=== PATIENT | male | born 1960 | race Caucasian/White ===

== ENCOUNTER 2024-01-01 12:54 | Emergency (ER) | payer OTHER ==
--- OUTSIDE RECORDS SUMMARY | 2024-01-01 12:59 | XMS REPORT | Continuity of Care Document ---
Author Name Unknown Address [address] th[address] Address 1200 [facility] [address] [place] [address] Care Team Providers Care News Internship Name Role Phone ROUSE_F Attending Clinician Unavailable ERICKSON_R Attending Clinician Unavailable ROUSE_F Admitting Clinician Unavailable ERICKSON_R Admitting Clinician Unavailable Payers Payer Name Policy Type Policy Number Effective Date Expirati on Date Source [facility] - DUAL ELIGIBLE (MEDICARE REPLACEMENT/[place] [employer] - HMO) [id number] 2022 00:00:00 [facility] [id number] Problems Condition Name Condition Details Condition Category Status Onset Date Resolution Date Last Treatment Date Treating Clinician Comments Source Smoker Sm[facility]term drug therapy Long-term Drug Therapy Problem Active [facility]22[facility] Polyp of colon Polyp of Colon Problem [facility] Hypothyroi dism Hypothyroi dism Problem Active 12[facility]25 [facility] Coronary arterioscl erosis Coronary Arterioscl erosis Problem Active 12-18 00[facility]: [facility] Chronic bronchitis Chronic Bronchitis Problem Active 2021-08 [facility] Pulmonary emphysema Pulmonary Emphysema Problem Active 2021[facility]08 [facility] Hyperchole sterolemia Hyperchole sterolemia Problem Active 2021-08 [facility] Mixed anxiety and depressive disorder Mixed Anxiety and Depressive Disorder Problem Active 2021-08 00:00: 00 [facility] Hypertensi ve disorder Hypertensi ve Disorder Problem Active 2021-08 00:00: 00 [facility] Gastroesop hageal reflux disease Gastroesop hageal Reflux Disease Problem Active 2021-08 00:00: 00 [facility] Chronic back pain Chronic Back Pain Problem Active 2021-08 00:00: 00 [facility] Moderate smoker (20 or less per day) Moderate Smoker (20 or Less per Day) Problem Active 2021-08 00:00: 00 [facility] Malignant neoplasm of skin Malignant Neoplasm of Skin Problem Active 2021-08 00:00: 00 [facility] Type 2 diabetes mellitus Type 2 Diabetes Mellitus Problem Active 2021-08 00:00: 00 [facility] Social History Smoking Status Start Date Stop Date Source Heavy Tobacco Smoker [facility] Medications Ordered Medication Name Filled Medication Name Start Date Stop Date Current Medication? Ordering Clinician Indication Dosage Frequency Signature (SIG) Comments Components Source bupropion HCl SR 200 mg tablet,12 hr sustained-r elease Take 1 tablet twice a day by oral route. bupropion HCl SR 200 mg tablet,12 hr sustained-r elease Take 1 tablet twice a day by oral route. 12-25 00:00: 00 No 1 BID bupropion HCl SR 200 mg tablet,12 hr sustained- release Take 1 tablet twice a day by oral route. [facility] bupropion HCl SR 200 mg tablet,12 hr sustained-r elease Take 1 tablet twice a day by oral route for 90 days. bupropion HCl SR 200 mg tablet,12 hr sustained-r elease Take 1 tablet twice a day by oral route for 90 days. No 1 BID bupropion HCl SR 200 mg tablet,12 hr sustained- release Take 1 tablet twice a day by oral route for 90 days. [facility] buspirone 15 mg tablet Take 1 tablet twice a day by oral route for 90 days. buspirone 15 mg tablet Take 1 tablet twice a day by oral route for 90 days. No 1 BID buspirone 15 mg tablet Take 1 tablet twice a day by oral route for 90 days. [facility] clopidogrel 75 mg tablet TAKE 1 TABLET BY MOUTH DAILY clopidogrel 75 mg tablet TAKE 1 TABLET BY MOUTH DAILY No clopidogre l 75 mg tablet TAKE 1 TABLET BY MOUTH DAILY [facility] duloxetine 60 mg capsule,del ayed release Take 1 capsule every day by oral route. duloxetine 60 mg capsule,del ayed release Take 1 capsule every day by oral route. No duloxetine 60 mg capsule,de layed release Take 1 capsule every day by oral route. [facility] levothyroxi ne 125 mcg tablet TAKE 1 TABLET BY MOUTH DAILY levothyroxi ne 125 mcg tablet TAKE 1 TABLET BY MOUTH DAILY No levothyrox ine 125 mcg tablet TAKE 1 TABLET BY MOUTH DAILY [facility] lisinopril 10 mg tablet Take 1 tablet every day by oral route. lisinopril 10 mg tablet Take 1 tablet every day by oral route. No lisinopril 10 mg tablet Take 1 tablet every day by oral route. [facility] metformin 500 mg tablet Take 1 tablet twice a day by oral route for 90 days. metformin 500 mg tablet Take 1 tablet twice a day by oral route for 90 days. No 1 BID metformin 500 mg tablet Take 1 tablet twice a day by oral route for 90 days. [facility] OneTouch Delica Plus Lancet 33 gauge OneTouch Delica Plus Lancet 33 gauge No OneTouch Delica Plus Lancet 33 gauge [facility] OneTouch Ultra Test strips Use as directed OneTouch Ultra Test strips Use as directed No OneTouch Ultra Test strips Use as directed [facility] pantoprazol e 40 mg tablet,debi yed release TAKE 1 TABLET BY MOUTH DAILY pantoprazol e 40 mg tablet,edbi yed release TAKE 1 TABLET BY MOUTH DAILY No pantoprazo le 40 mg tablet,del ayed release TAKE 1 TABLET BY MOUTH DAILY [facility] rosuvastati n 20 mg tablet Take 1 tablet every day by oral route at bedtime. rosuvastati n 20 mg tablet Take 1 tablet every day by oral route at bedtime. No rosuvastat in 20 mg tablet Take 1 tablet every day by oral route at bedtime. [facility] sildenafil 50 mg tablet Take 1 tablet every day by oral route. sildenafil 50 mg tablet Take 1 tablet every day by oral route. No 1 Q1D sildenafil 50 mg tablet Take 1 tablet every day by oral route. [facility] tamsulosin 0.4 mg capsule Take 1 capsule every day by oral route. tamsulosin 0.4 mg capsule Take 1 capsule every day by oral route. No tamsulosin 0.4 mg capsule Take 1 capsule every day by oral route. [facility] triamcinolo ne acetonide 0.1 % topical cream APPLY A THIN LAYER TO THE AFFECTED AREA(S) BY TOPICAL ROUTE 2 TIMES PER DAY triamcinolo ne acetonide 0.1 % topical cream APPLY A THIN LAYER TO THE AFFECTED AREA(S) BY TOPICAL ROUTE 2 TIMES PER DAY No triamcinol one acetonide 0.1 % topical cream APPLY A THIN LAYER TO THE AFFECTED AREA(S) BY TOPICAL ROUTE 2 TIMES PER DAY [facility] bupropion HCl SR 200 mg tablet,12 hr sustained-r elease Take 1 tablet twice a day by oral route for 90 days. bupropion HCl SR 200 mg tablet,12 hr sustained-r elease Take 1 tablet twice a day by oral route for 90 days. No 1 BID bupropion HCl SR 200 mg tablet,12 hr sustained- release Take 1 tablet twice a day by oral route for 90 days. [facility] buspirone 15 mg tablet Take 1 tablet twice a day by oral route for 90 days. buspirone 15 mg tablet Take 1 tablet twice a day by oral route for 90 days. No 1 BID buspirone 15 mg tablet Take 1 tablet twice a day by oral route for 90 days. [facility] clopidogrel 75 mg tablet TAKE 1 TABLET BY MOUTH DAILY clopidogrel 75 mg tablet TAKE 1 TABLET BY MOUTH DAILY No clopidogre l 75 mg tablet TAKE 1 TABLET BY MOUTH DAILY [facility] levothyroxi ne 125 mcg tablet TAKE 1 TABLET BY MOUTH DAILY levothyroxi ne 125 mcg tablet TAKE 1 TABLET BY MOUTH DAILY No levothyrox ine 125 mcg tablet TAKE 1 TABLET BY MOUTH DAILY [facility] lisinopril 10 mg tablet Take 1 tablet every day by oral route. lisinopril 10 mg tablet Take 1 tablet every day by oral route. No lisinopril 10 mg tablet Take 1 tablet every day by oral route. [facility] metformin 500 mg tablet Take 2 tablets twice a day by oral route for 100 days. metformin 500 mg tablet Take 2 tablets twice a day by oral route for 100 days. No metformin 500 mg tablet Take 2 tablets twice a day by oral route for 100 days. [facility] OneTouch Delica Plus Lancet 33 gauge OneTouch Delica Plus Lancet 33 gauge No OneTouch Delica Plus Lancet 33 gauge [facility] OneTouch Ultra Test strips Use as directed OneTouch Ultra Test strips Use as directed No OneTouch Ultra Test strips Use as directed [facility] pantoprazol e 40 mg tablet,debi yed release TAKE 1 TABLET BY MOUTH DAILY pantoprazol e 40 mg tablet,debi yed release TAKE 1 TABLET BY MOUTH DAILY No pantoprazo le 40 mg tablet,del ayed release TAKE 1 TABLET BY MOUTH DAILY [facility] rosuvastati n 20 mg tablet Take 1 tablet every day by oral route at bedtime. rosuvastati n 20 mg tablet Take 1 tablet every day by oral route at bedtime. No rosuvastat in 20 mg tablet Take 1 tablet every day by oral route at bedtime. [facility] sildenafil 50 mg tablet Take 1 tablet every day by oral route. sildenafil 50 mg tablet Take 1 tablet every day by oral route. No 1 Q1D sildenafil 50 mg tablet Take 1 tablet every day by oral route. [facility] tamsulosin 0.4 mg capsule Take 1 capsule every day by oral route. tamsulosin 0.4 mg capsule Take 1 capsule every day by oral route. No tamsulosin 0.4 mg capsule Take 1 capsule every day by oral route. [facility] triamcinolo ne acetonide 0.1 % topical cream APPLY A THIN LAYER TO AFFECTED AREA TWICE DAILY triamcinolo ne acetonide 0.1 % topical cream APPLY A THIN LAYER TO AFFECTED AREA TWICE DAILY No triamcinol one acetonide 0.1 % topical cream APPLY A THIN LAYER TO AFFECTED AREA TWICE DAILY [facility] bupropion HCl SR 200 mg tablet,12 hr sustained-r elease Take 1 tablet twice a day by oral route for 90 days. bupropion HCl SR 200 mg tablet,12 hr sustained-r elease Take 1 tablet twice a day by oral route for 90 days. No 1 BID bupropion HCl SR 200 mg tablet,12 hr sustained- release Take 1 tablet twice a day by oral route for 90 days. [facility] buspirone 15 mg tablet Take 1 tablet twice a day by oral route for 90 days. buspirone 15 mg tablet Take 1 tablet twice a day by oral route for 90 days. No 1 BID buspirone 15 mg tablet Take 1 tablet twice a day by oral route for 90 days. [facility] clopidogrel 75 mg tablet TAKE 1 TABLET BY MOUTH DAILY clopidogrel 75 mg tablet TAKE 1 TABLET BY MOUTH DAILY No clopidogre l 75 mg tablet TAKE 1 TABLET BY MOUTH DAILY [facility] duloxetine 40 mg capsule,del ayed release Take 1 capsule every day by oral route for 14 days. duloxetine 40 mg capsule,del ayed release Take 1 capsule every day by oral route for 14 days. No 1capsul e(s) Q1D duloxetine 40 mg capsule,de layed release Take 1 capsule every day by oral route for 14 days. [facility] levothyroxi ne 125 mcg tablet TAKE 1 TABLET BY MOUTH DAILY levothyroxi ne 125 mcg tablet TAKE 1 TABLET BY MOUTH DAILY No levothyrox ine 125 mcg tablet TAKE 1 TABLET BY MOUTH DAILY [facility] lisinopril 10 mg tablet Take 1 tablet every day by oral route. lisinopril 10 mg tablet Take 1 tablet every day by oral route. No lisinopril 10 mg tablet Take 1 tablet every day by oral route. [facility] metformin 500 mg tablet Take 2 tablets twice a day by oral route for 100 days. metformin 500 mg tablet Take 2 tablets twice a day by oral route for 100 days. No metformin 500 mg tablet Take 2 tablets twice a day by oral route for 100 days. [facility] OneTouch Delica Plus Lancet 33 gauge OneTouch Delica Plus Lancet 33 gauge No OneTouch Delica Plus Lancet 33 gauge [facility] OneTouch Ultra Test strips Use as directed OneTouch Ultra Test strips Use as directed No OneTouch Ultra Test strips Use as directed [facility] pantoprazol e 40 mg tablet,debi yed release TAKE 1 TABLET BY MOUTH DAILY pantoprazol e 40 mg tablet,debi yed release TAKE 1 TABLET BY MOUTH DAILY No pantoprazo le 40 mg tablet,del ayed release TAKE 1 TABLET BY MOUTH DAILY [facility] rosuvastati n 20 mg tablet Take 1 tablet every day by oral route at bedtime. rosuvastati n 20 mg tablet Take 1 tablet every day by oral route at bedtime. No rosuvastat in 20 mg tablet Take 1 tablet every day by oral route at bedtime. [facility] sildenafil 50 mg tablet Take 1 tablet every day by oral route. sildenafil 50 mg tablet Take 1 tablet every day by oral route. No 1 Q1D sildenafil 50 mg tablet Take 1 tablet every day by oral route. [facility] tamsulosin 0.4 mg capsule Take 1 capsule every day by oral route for 90 days. tamsulosin 0.4 mg capsule Take 1 capsule every day by oral route for 90 days. No 1capsul e(s) Q1D tamsulosin 0.4 mg capsule Take 1 capsule every day by oral route for 90 days. [facility] triamcinolo ne acetonide 0.1 % topical cream APPLY A THIN LAYER TO AFFECTED AREA TWICE DAILY triamcinolo ne acetonide 0.1 % topical cream APPLY A THIN LAYER TO AFFECTED AREA TWICE DAILY No triamcinol one acetonide 0.1 % topical cream APPLY A THIN LAYER TO AFFECTED AREA TWICE DAILY [facility] bupropion HCl SR 200 mg tablet,12 hr sustained-r elease Take 1 tablet twice a day by oral route. bupropion HCl SR 200 mg tablet,12 hr sustained-r elease Take 1 tablet twice a day by oral route. No 1 BID bupropion HCl SR 200 mg tablet,12 hr sustained- release Take 1 tablet twice a day by oral route. [facility] buspirone 15 mg tablet Take 1 tablet twice a day by oral route. buspirone 15 mg tablet Take 1 tablet twice a day by oral route. No 1 BID buspirone 15 mg tablet Take 1 tablet twice a day by oral route. [facility] clopidogrel 75 mg tablet Take 1 tablet every day by oral route. clopidogrel 75 mg tablet Take 1 tablet every day by oral route. No 1 Q1D clopidogre l 75 mg tablet Take 1 tablet every day by oral route. [facility] Vitamin B12 1,000 mcg tablet Take 1 tablet every day by oral route. [facility] Vitamin B12 1,000 mcg tablet Take 1 tablet every day by oral route. No 1 Q1D [facility] Vitamin B12 1,000 mcg tablet Take 1 tablet every day by oral route. [facility] duloxetine 60 mg capsule,del ayed release Take 1 capsule every day by oral route. duloxetine 60 mg capsule,del ayed release Take 1 capsule every day by oral route. No 1capsul e(s) Q1D duloxetine 60 mg capsule,de layed release Take 1 capsule every day by oral route. [facility] levothyroxi ne 125 mcg tablet Take 1 tablet every day by oral route. levothyroxi ne 125 mcg tablet Take 1 tablet every day by oral route. No 1 Q1D levothyrox ine 125 mcg tablet Take 1 tablet every day by oral route. [facility] lisinopril 10 mg tablet Take 1 tablet every day by oral route. lisinopril 10 mg tablet Take 1 tablet every day by oral route. No 1 Q1D lisinopril 10 mg tablet Take 1 tablet every day by oral route. [facility] metformin 500 mg tablet Take 1 tablet twice a day by oral route. metformin 500 mg tablet Take 1 tablet twice a day by oral route. No 1 BID metformin 500 mg tablet Take 1 tablet twice a day by oral route. [facility] pantoprazol e 40 mg tablet,debi yed release Take 1 tablet every day by oral route. pantoprazol e 40 mg tablet,debi yed release Take 1 tablet every day by oral route. No 1 Q1D pantoprazo le 40 mg tablet,del ayed release Take 1 tablet every day by oral route. [facility] rosuvastati n 20 mg tablet Take 1 tablet every day by oral route at bedtime. rosuvastati n 20 mg tablet Take 1 tablet every day by oral route at bedtime. No 1 Q1D rosuvastat in 20 mg tablet Take 1 tablet every day by oral route at bedtime. [facility] sildenafil 50 mg tablet Take 1 tablet every day by oral route. sildenafil 50 mg tablet Take 1 tablet every day by oral route. No 1 Q1D sildenafil 50 mg tablet Take 1 tablet every day by oral route. [facility] tamsulosin 0.4 mg capsule Take 1 capsule every day by oral route. tamsulosin 0.4 mg capsule Take 1 capsule every day by oral route. No 1capsul e(s) Q1D tamsulosin 0.4 mg capsule Take 1 capsule every day by oral route. [facility] Vitamin C 500 mg tablet Take 500 mg every day by oral route. Vitamin C 500 mg tablet Take 500 mg every day by oral route. No 500mg Q1D Vitamin C 500 mg tablet Take 500 mg every day by oral route. [facility] Vitamin D3 125 mcg (5,000 unit) tablet Take 1 tablet every day by oral route. Vitamin D3 125 mcg (5,000 unit) tablet Take 1 tablet every day by oral route. No 1 Q1D Vitamin D3 125 mcg (5,000 unit) tablet Take 1 tablet every day by oral route. [facility] bupropion HCl SR 200 mg tablet,12 hr sustained-r elease Take 1 tablet twice a day by oral route. bupropion HCl SR 200 mg tablet,12 hr sustained-r elease Take 1 tablet twice a day by oral route. No 1 BID bupropion HCl SR 200 mg tablet,12 hr sustained- release Take 1 tablet twice a day by oral route. [facility] buspirone 15 mg tablet Take 1 tablet twice a day by oral route. buspirone 15 mg tablet Take 1 tablet twice a day by oral route. No 1 BID buspirone 15 mg tablet Take 1 tablet twice a day by oral route. [facility] clopidogrel 75 mg tablet Take 1 tablet every day by oral route. clopidogrel 75 mg tablet Take 1 tablet every day by oral route. No clopidogre l 75 mg tablet Take 1 tablet every day by oral route. [facility] duloxetine 60 mg capsule,del ayed release Take 1 capsule every day by oral route. duloxetine 60 mg capsule,del ayed release Take 1 capsule every day by oral route. No duloxetine 60 mg capsule,de layed release Take 1 capsule every day by oral route. [facility] levothyroxi ne 125 mcg tablet Take 1 tablet every day by oral route. levothyroxi ne 125 mcg tablet Take 1 tablet every day by oral route. No levothyrox ine 125 mcg tablet Take 1 tablet every day by oral route. [facility] lisinopril 10 mg tablet Take 1 tablet every day by oral route. lisinopril 10 mg tablet Take 1 tablet every day by oral route. No lisinopril 10 mg tablet Take 1 tablet every day by oral route. [facility] metformin 500 mg tablet Take 1 tablet twice a day by oral route. metformin 500 mg tablet Take 1 tablet twice a day by oral route. No metformin 500 mg tablet Take 1 tablet twice a day by oral route. [facility] OneTouch Ultra Test strips Use as directed OneTouch Ultra Test strips Use as directed No OneTouch Ultra Test strips Use as directed [facility] pantoprazol e 40 mg tablet,debi yed release Take 1 tablet every day by oral route for 90 days. pantoprazol e 40 mg tablet,debi yed release Take 1 tablet every day by oral route for 90 days. No pantoprazo le 40 mg tablet,del ayed release Take 1 tablet every day by oral route for 90 days. [facility] rosuvastati n 20 mg tablet Take 1 tablet every day by oral route at bedtime. rosuvastati n 20 mg tablet Take 1 tablet every day by oral route at bedtime. No rosuvastat in 20 mg tablet Take 1 tablet every day by oral route at bedtime. [facility] sildenafil 50 mg tablet Take 1 tablet every day by oral route. sildenafil 50 mg tablet Take 1 tablet every day by oral route. No 1 Q1D sildenafil 50 mg tablet Take 1 tablet every day by oral route. [facility] tamsulosin 0.4 mg capsule Take 1 capsule every day by oral route. tamsulosin 0.4 mg capsule Take 1 capsule every day by oral route. No tamsulosin 0.4 mg capsule Take 1 capsule every day by oral route. [facility] bupropion HCl SR 200 mg tablet,12 hr sustained-r elease Take 1 tablet twice a day by oral route. bupropion HCl SR 200 mg tablet,12 hr sustained-r elease Take 1 tablet twice a day by oral route. No 1 BID bupropion HCl SR 200 mg tablet,12 hr sustained- release Take 1 tablet twice a day by oral route. [facility] buspirone 15 mg tablet Take 1 tablet twice a day by oral route. buspirone 15 mg tablet Take 1 tablet twice a day by oral route. No 1 BID buspirone 15 mg tablet Take 1 tablet twice a day by oral route. [facility] clopidogrel 75 mg tablet Take 1 tablet every day by oral route. clopidogrel 75 mg tablet Take 1 tablet every day by oral route. No clopidogre l 75 mg tablet Take 1 tablet every day by oral route. [facility] duloxetine 60 mg capsule,del ayed release Take 1 capsule every day by oral route. duloxetine 60 mg capsule,del ayed release Take 1 capsule every day by oral route. No duloxetine 60 mg capsule,de layed release Take 1 capsule every day by oral route. [facility] levothyroxi ne 125 mcg tablet Take 1 tablet every day by oral route. levothyroxi ne 125 mcg tablet Take 1 tablet every day by oral route. No levothyrox ine 125 mcg tablet Take 1 tablet every day by oral route. [facility] lisinopril 10 mg tablet Take 1 tablet every day by oral route. lisinopril 10 mg tablet Take 1 tablet every day by oral route. No lisinopril 10 mg tablet Take 1 tablet every day by oral route. [facility] metformin 500 mg tablet Take 1 tablet twice a day by oral route. metformin 500 mg tablet Take 1 tablet twice a day by oral route. No metformin 500 mg tablet Take 1 tablet twice a day by oral route. [facility] OneTouch Ultra Test strips Use as directed OneTouch Ultra Test strips Use as directed No OneTouch Ultra Test strips Use as directed [facility] pantoprazol e 40 mg tablet,debi yed release Take 1 tablet every day by oral route for 90 days. pantoprazol e 40 mg tablet,debi yed release Take 1 tablet every day by oral route for 90 days. No pantoprazo le 40 mg tablet,del ayed release Take 1 tablet every day by oral route for 90 days. [facility] rosuvastati n 20 mg tablet Take 1 tablet every day by oral route at bedtime. rosuvastati n 20 mg tablet Take 1 tablet every day by oral route at bedtime. No rosuvastat in 20 mg tablet Take 1 tablet every day by oral route at bedtime. [facility] sildenafil 50 mg tablet Take 1 tablet every day by oral route. sildenafil 50 mg tablet Take 1 tablet every day by oral route. No 1 Q1D sildenafil 50 mg tablet Take 1 tablet every day by oral route. [facility] tamsulosin 0.4 mg capsule Take 1 capsule every day by oral route. tamsulosin 0.4 mg capsule Take 1 capsule every day by oral route. No tamsulosin 0.4 mg capsule Take 1 capsule every day by oral route. [facility] [facility] [place] buspirone 15 mg tablet Take 1 tablet twice a day by oral route for 90 days. buspirone 15 mg tablet Take 1 tablet twice a day by oral route for 90 days. No buspirone 15 mg tablet Take 1 tablet twice a day by oral route for 90 days. [facility] clopidogrel 75 mg tablet Take 1 tablet every day by oral route for 90 days. clopidogrel 75 mg tablet Take 1 tablet every day by oral route for 90 days. No 1 Q1D clopidogre l 75 mg tablet Take 1 tablet every day by oral route for 90 days. [facility] duloxetine 60 mg capsule,del ayed release Take 1 capsule every day by oral route. duloxetine 60 mg capsule,del ayed release Take 1 capsule every day by oral route. No duloxetine 60 mg capsule,de layed release Take 1 capsule every day by oral route. [facility] levothyroxi ne 125 mcg tablet Take 1 tablet every day by oral route. levothyroxi ne 125 mcg tablet Take 1 tablet every day by oral route. No levothyrox ine 125 mcg tablet Take 1 tablet every day by oral route. [facility] lisinopril 10 mg tablet Take 1 tablet every day by oral route. lisinopril 10 mg tablet Take 1 tablet every day by oral route. No lisinopril 10 mg tablet Take 1 tablet every day by oral route. [facility] metformin 500 mg tablet Take 1 tablet twice a day by oral route. metformin 500 mg tablet Take 1 tablet twice a day by oral route. No metformin 500 mg tablet Take 1 tablet twice a day by oral route. [facility] OneTouch Delica Plus Lancet 33 gauge OneTouch Delica Plus Lancet 33 gauge No OneTouch Delica Plus Lancet 33 gauge [facility] OneTouch Ultra Test strips Use as directed OneTouch Ultra Test strips Use as directed No OneTouch Ultra Test strips Use as directed [facility] pantoprazol e 40 mg tablet,debi yed release TAKE 1 TABLET BY MOUTH DAILY pantoprazol e 40 mg tablet,debi yed release TAKE 1 TABLET BY MOUTH DAILY No pantoprazo le 40 mg tablet,del ayed release TAKE 1 TABLET BY MOUTH DAILY [facility] rosuvastati n 20 mg tablet Take 1 tablet every day by oral route at bedtime. rosuvastati n 20 mg tablet Take 1 tablet every day by oral route at bedtime. No rosuvastat in 20 mg tablet Take 1 tablet every day by oral route at bedtime. [facility] sildenafil 50 mg tablet Take 1 tablet every day by oral route. sildenafil 50 mg tablet Take 1 tablet every day by oral route. No 1 Q1D sildenafil 50 mg tablet Take 1 tablet every day by oral route. [facility] tamsulosin 0.4 mg capsule Take 1 capsule every day by oral route. tamsulosin 0.4 mg capsule Take 1 capsule every day by oral route. No tamsulosin 0.4 mg capsule Take 1 capsule every day by oral route. [facility] bupropion HCl SR 200 mg tablet,12 hr sustained-r elease Take 1 tablet twice a day by oral route for 90 days. bupropion HCl SR 200 mg tablet,12 hr sustained-r elease Take 1 tablet twice a day by oral route for 90 days. No 1 BID bupropion HCl SR 200 mg tablet,12 hr sustained- release Take 1 tablet twice a day by oral route for 90 days. [facility] buspirone 15 mg tablet Take 1 tablet twice a day by oral route for 90 days. buspirone 15 mg tablet Take 1 tablet twice a day by oral route for 90 days. No 1 BID buspirone 15 mg tablet Take 1 tablet twice a day by oral route for 90 days. [facility] clopidogrel 75 mg tablet TAKE 1 TABLET BY MOUTH DAILY clopidogrel 75 mg tablet TAKE 1 TABLET BY MOUTH DAILY No clopidogre l 75 mg tablet TAKE 1 TABLET BY MOUTH DAILY [facility] duloxetine 60 mg capsule,del ayed release Take 1 capsule every day by oral route. duloxetine 60 mg capsule,del ayed release Take 1 capsule every day by oral route. No duloxetine 60 mg capsule,de layed release Take 1 capsule every day by oral route. [facility] levothyroxi ne 125 mcg tablet TAKE 1 TABLET BY MOUTH DAILY levothyroxi ne 125 mcg tablet TAKE 1 TABLET BY MOUTH DAILY No levothyrox ine 125 mcg tablet TAKE 1 TABLET BY MOUTH DAILY [facility] lisinopril 10 mg tablet Take 1 tablet every day by oral route. lisinopril 10 mg tablet Take 1 tablet every day by oral route. No lisinopril 10 mg tablet Take 1 tablet every day by oral route. [facility] metformin 500 mg tablet Take 1 tablet twice a day by oral route for 90 days. metformin 500 mg tablet Take 1 tablet twice a day by oral route for 90 days. No 1 BID metformin 500 mg tablet Take 1 tablet twice a day by oral route for 90 days. [facility] OneTouch Delica Plus Lancet 33 gauge OneTouch Delica Plus Lancet 33 gauge No OneTouch Delica Plus Lancet 33 gauge [facility] OneTouch Ultra Test strips Use as directed OneTouch Ultra Test strips Use as directed No OneTouch Ultra Test strips Use as directed [facility] pantoprazol e 40 mg tablet,debi yed release TAKE 1 TABLET BY MOUTH DAILY pantoprazol e 40 mg tablet,debi yed release TAKE 1 TABLET BY MOUTH DAILY No pantoprazo le 40 mg tablet,del ayed release TAKE 1 TABLET BY MOUTH DAILY [facility] rosuvastati n 20 mg tablet Take 1 tablet every day by oral route at bedtime. rosuvastati n 20 mg tablet Take 1 tablet every day by oral route at bedtime. No rosuvastat in 20 mg tablet Take 1 tablet every day by oral route at bedtime. [facility] sildenafil 50 mg tablet Take 1 tablet every day by oral route. sildenafil 50 mg tablet Take 1 tablet every day by oral route. No 1 Q1D sildenafil 50 mg tablet Take 1 tablet every day by oral route. [facility] tamsulosin 0.4 mg capsule Take 1 capsule every day by oral route. tamsulosin 0.4 mg capsule Take 1 capsule every day by oral route. No tamsulosin 0.4 mg capsule Take 1 capsule every day by oral route. [facility] triamcinolo ne acetonide 0.1 % topical cream APPLY A THIN LAYER TO THE AFFECTED AREA(S) BY TOPICAL ROUTE 2 TIMES PER DAY triamcinolo ne acetonide 0.1 % topical cream APPLY A THIN LAYER TO THE AFFECTED AREA(S) BY TOPICAL ROUTE 2 TIMES PER DAY No triamcinol one acetonide 0.1 % topical cream APPLY A THIN LAYER TO THE AFFECTED AREA(S) BY TOPICAL ROUTE 2 TIMES PER DAY [facility] Immunizations Ordered Immunization Name Filled Immunization Name Date Status Comments Source Hep A-Hep B Hep A-Hep B Unknown Completed [facility] Tdap Tdap Unknown Completed [facility] COVID-19, mRNA, LNP-S, PF, 50 mcg/0.5 mL COVID-19, mRNA, LNP-S, PF, 50 mcg/0.5 mL Unknown Completed [facility] Pneumococcal conjugate PCV20, polysaccharide [id number] conjugate, adjuvant, PF Pneumococcal conjugate PCV20, polysaccharide [id number] conjugate, adjuvant, PF Unknown Completed [facility] Hep A-Hep B Hep A-Hep B Unknown Completed [facility] Hep A-Hep B Hep A-Hep B Unknown Completed [facility] Tdap Tdap Unknown Completed [facility] COVID-19, mRNA, LNP-S, PF, 50 mcg/0.5 mL COVID-19, mRNA, LNP-S, PF, 50 mcg/0.5 mL Unknown Completed [facility] Pneumococcal conjugate PCV20, polysaccharide [id number] conjugate, adjuvant, PF Pneumococcal conjugate PCV20, polysaccharide [id number] conjugate, adjuvant, PF Unknown Completed [facility] Vital Signs Vital Name Observation Time Observation Value Comments S ource Body Weight 2023-08-29 00:00:00 2464 [oz_av] [facility] BP Diastolic 2023-08-29 00:00:00 74 mm[Hg] [facility] BMI (Body Mass Index) 2023-08-29 00:00:00 22.1 kg/m2 [facility] BP Systolic 2023-08-29 00:00:00 120 mm[Hg] [facility] Height 2023-08-29 00:00:00 70 [in_i] [facility] BP Diastolic 2023-06-27 00:00:00 74 mm[Hg] [facility] Body Weight 2023-06-27 00:00:00 2400 [oz_av] [facility] BP Systolic 2023-06-27 00:00:00 112 mm[Hg] [facility] BMI (Body Mass Index) 2023-06-27 00:00:00 21.5 kg/m2 [facility] Height 2023-06-27 00:00:00 70 [facility] 2023-05-23 00:00:00 70 [in_i] [facility] BP Diastolic 2023-05-23 00:00:00 78 mm[Hg] [facility] BP Systolic 2023-05-23 00:00:00 128 mm[Hg] [facility] Body Weight 2023-05-23 00:00:00 2480 [oz_av] [facility] BMI (Body Mass Index) 2023-05-23 00:00:00 22.2 kg/m2 [facility] BP Diastolic 2022-12-25 00:00:00 72 mm[Hg] [facility] Height 2022-12-25 00:00:00 70 [in_i] [facility] BMI (Body Mass Index) 2022-12-25 00:00:00 21.8 kg/m2 [facility] BP Systolic 2022-12-25 00:00:00 118 mm[Hg] [facility] Body Weight 2022-12-25 00:00:00 2432 [oz_av] [facility] BP Diastolic 2022-09-27 00:00:00 84 mm[Hg] [facility] Height 2022-09-27 00:00:00 70 [in_i] [facility] BMI (Body Mass Index) 2022-09-27 00:00:00 23 kg/m2 [facility] BP Systolic 2022-09-27 00:00:00 110 mm[Hg] [facility] Body Weight 2022-09-27 00:00:00 2560 [oz_av] [facility] BP Diastolic 2022-06-26 00:00:00 68 mm[Hg] [facility] Height 2022-06-26 00:00:00 70 [in_i] [facility] BMI (Body Mass Index) 2022-06-26 00:00:00 23.4 kg/m2 [facility] BP Systolic 2022-06-26 00:00:00 110 mm[Hg] [facility] Body Weight 2022-06-26 00:00:00 2608 [oz_av] [facility] Procedures Procedure Date / Time Performed Performing Clinicia n Source US, scrotum 2023-08-29 00:00:00 [facility] LDCT, chest, for lung cancer screening 2023-06-27 00:00:00 [facility] LDCT, chest, for lung cancer screening 2022-06-26 00:00:00 [facility] Radiography of Thyroid Region [facility] Dental Surgical Procedure [facility] Faradic Nerve Stimulation to Back [facility] Plan of Care Planned Activity Planned Date Details Comments Source Diagnostic Test Pending 2023-08-29 00:00:00 urinalysis, complete [code = urinalysis, complete] [facility] Future Appointment 2024-01-16 07:30:00 Kait Poole N Shikha; [place] [address] [facility] Instructions [facility] Encounters Start Date/Time End Date/Time Encounter Type Admission Type Attending Clinicians Care Facility Care Department Encounter ID Source 2023-08-29 00:00:00 2023-08-29 00:00:00 Outpatient [facility] [id number] [facility] 2023-08-29 00:00:00 2023-08-29 00:00:00 RAINER Poole: [address] [place] [address] , Ph. [phone] [place] - [facility], DR. MAGANA [id number] [facility] 2023-06-27 00:00:00 2023-06-27 00:00:00 Outpatient [id number] 2023-06-27 00:00:00 2023-06-27 00:00:00 MANAS CorriganC: [address] [place] [address] , [address] [facility], DR. MAGANA [id number] [facility] 2023-05-23 00:00:00 2023-05-23 00:00:00 MANAS CorriganC: [address], [place] [address] , [address] [facility], DR. MAGANA [id number] [facility] 2022-12-25 00:00:00 2022-12-25 00:00:00 Outpatient [facility] [id number] [facility] 2022-12-25 00:00:00 2022-12-25 00:00:00 Outpatient [facility] [id number] [facility] 2022-12-25 00:00:00 2022-12-25 00:00:00 Jim Magana, DO: [place] [address] , Ph. [phone] [facility], DR. MAGAAN [id number] [facility] 2022-09-27 00:00:00 2022-09-27 00:00:00 Jim Magana, DO: [place] [address] , Ph. [phone] [facility], DR. MAGANA [id number] [facility] 2022-08-10 00:00:00 2022-08-10 00:00:00 Outpatient [facility] [id number] [facility] 2022-08-10 00:00:00 2022-08-10 00:00:00 Outpatient [facility] [id number] 2022-06-26 00:00:00 2022-06-26 00:00:00 Outpatient [facility] [id number] [facility] 2022-06-26 00:00:00 2022-06-26 00:00:00 Jim Magana, DO: [address], [place] [address] , Ph. [facility], DR. MAGANA [id number] [facility] 2022-06-12 00:00:00 2022-06-12 00:00:00 Outpatient [facility] [id number] [facility]
[2024-01-01] MEDS ORDERED: KETOROLAC 30 MG/ML INJ ONE (13:24)
--- NOTE | 2024-01-01 13:37 | RAD REPORT ---
EXAM DESCRIPTION: RAD - Knee Left 3 View - 01/01/2024 1:32 pm CLINICAL HISTORY: PAIN COMPARISON: No comparisons FINDINGS: No fracture, dislocation or significant joint effusion. Mild soft tissue swelling anterior ly.
--- NOTE | 2024-01-01 13:50 | RAD REPORT ---
EXAM DESCRIPTION: US - Extremity Venous Uni Ltd - 01/01/2024 1:45 pm CLINICAL HISTORY: PAIN Leg swelling and edema. COMPARISON: No comparisons FINDINGS: Left lower extremity venous system was interrogated with Doppler technique. Normal flow, c ompressibility and augmentation was noted. There is no DVT present. IMPRESSION: No evidence of left lower extremity deep venous thrombosis.
--- NOTE | 2024-01-01 13:58 | EDPHYS ---
Physician Documentation [facility] Name: Carlos Eduardo Ceja Age: 63 yrs Sex: Male : 1960 Arrival Date: 01/01/2024 Time: 12:54 Bed 11 Private MD: ED Physician Raymond Martinez HPI: 12/31 13:52 This 63 yrs old Male presents to ER via Ambulatory with complaints of Knee Pain. kb 13:52 Pt is a 63 year old male who presents for left knee pain, worse to the posterior kb aspect, that started one week ago. States his knee has been giving out on him causing him to fall as well. Denies any injury. . Historical: - Allergies: 13:04 No Known Allergies; iw - PMHx: 13:04 Hypertensive disorder; Hypercholesterolemia; Diabetes mellitus; Anxiety; Depressive iw disorder; GERD; graves disease; - PSHx: 13:04 Thyroidectomy; back; Appendectomy; iw - Immunization history:: Adult Immunizations up to date. - Infectious Disease History:: Denies. - Social history:: Smoking status: Patient reports the use of cigarette tobacco products, smokes one pack cigarettes per day. ROS: 13:52 Constitutional: As per HPI kb Exam: 13:52 Constitutional: This is a well developed, well nourished patient who is awake, alert, kb and in no acute distress. Head/Face: Normocephalic, atraumatic. ENT: Moist Mucous membranes Cardiovascular: Regular rate Respiratory: Respirations even and unlabored. No increased work of breathing. Talking in full sentences Skin: Warm, dry with normal turgor. Normal color. MS/ Extremity: Pulses equal, no cyanosis. Neurovascular intact. Full, normal range of motion. Neuro: Awake and alert, GCS 15, oriented to person, place, time, and situation. Moves all extremities. Normal gait. Vital Signs: 13:02 BP 144 / 71; Pulse 89; Resp 16; Temp 98.5; Pulse Ox 97% on R/A; Weight 65.77 kg; Height iw 5 ft. 8 in. ; Pain 10/10; 14:34 BP 138 / 72; Pulse 81; Resp 18; Temp 97.9; Pulse Ox 98% on R/A; ph 13:02 Body Mass Index 22.05 (65.77 kg, 172.72 cm) iw 13:02 Pain Scale: Adult iw MDM: 12:59 Patient medically screened. kb 13:53 Differential diagnosis: arthritis, strain, sprain, fracture. Data reviewed: vital kb signs, nurses notes. Counseling: I had a detailed discussion with the patient and/or guardian regarding the historical points, exam findings, and any diagnostic results supporting the discharge/admit diagnosis, radiology results, the need for outpatient follow up, a orthopedic surgeon, to return to the emergency department if symptoms worsen or persist or if there are any questions or concerns that arise at home. 12/31 13:16 Order name: Knee Left 3 View XRAY; Complete Time: 13:48 kb 12/31 13:16 Order name: US Extremity Venous Unilateral Ltd; Complete Time: 13:52 kb 12/31 13:57 Order name: Itz Wrap; Complete Time: 14:31 kb Administered Medications: 13:54 Drug: Ketorolac IM 30 mg IM once Route: IM; Site: right deltoid; ph 14:35 Follow up: Response: No adverse reaction ph Disposition: 16:33 I was immediately available on-site in the Emergency Department for consultation in the ms3 care of the patient. Disposition Summary: 01/01/24 13:57 Discharge Ordered Notes: Location: Home kb Condition: Stable kb Diagnosis - Pain in left knee kb Followup: kb - With: Emergency Department - When: As needed - Reason: Worsening of condition Followup: kb - With: Private Physician - When: 2 - 3 days - Reason: Recheck today's complaints, Continuance of care, Re-evaluation by your physician Discharge Instructions: - Discharge Summary Sheet kb - Musculoskeletal Pain kb - Acute Knee Pain, Adult, [id number] kb Forms: - Medication Reconciliation Form kb - Antibiotic Education kb - Prescription Opioid Use kb - Patient Portal Instructions kb - Leadership Thank You Letter kb Prescriptions: - Diclofenac Sodium 75 mg Oral tablet, delayed release (enteric coated) - take 1 tablet ORAL route 2 times per day As needed; 30 tablet; Refills: 0, kb Product Selection Permitted Signatures: Dispatcher [employer] Dasia Durham, RAINER RICHARD-Vy Perkins RN EMMY Anuja Foy RN RN Raymond Martinez, DO ms3
--- NOTE | 2024-01-01 13:58 | ER ---
Nurse's Notes [facility] Name: Carlos Eduardo Ceja Age: 63 yrs Sex: Male : 1960 Arrival Date: 01/01/2024 Time: 12:54 Bed 11 Private MD: Diagnosis: Pain in left knee Presentation: 12/31 13:02 Chief complaint: Patient states: pain behind left knee and it gives out on me, hurts iw more when standing, started a week ago, denies injury. Coronavirus screen: At this time, the client does not indicate any symptoms associated with coronavirus-19. Ebola Screen: Patient negative for fever greater than or equal to 101.5 degrees Fahrenheit, and additional compatible Ebola Virus Disease symptoms Patient denies exposure to infectious person. Patient denies travel to an Ebola-affected area in the 21 days before illness onset. No symptoms or risks identified at this time. Initial Sepsis Screen: Does the patient meet any 2 criteria? No. Patient's initial sepsis screen is negative. Does the patient have a suspected source of infection? No. Patient's initial sepsis screen is negative. Risk Assessment: Do you want to hurt yourself or someone else? Patient reports no desire to harm self or others. Onset of symptoms was December 25, 2023. 13:02 Method Of Arrival: Ambulatory iw 13:02 Acuity: JENNIFER 3 iw Historical: - Allergies: 13:04 No Known Allergies; iw - PMHx: 13:04 Hypertensive disorder; Hypercholesterolemia; Diabetes mellitus; Anxiety; Depressive iw disorder; GERD; graves disease; - PSHx: 13:04 Thyroidectomy; back; Appendectomy; iw - Immunization history:: Adult Immunizations up to date. - Infectious Disease History:: Denies. - Social history:: Smoking status: Patient reports the use of cigarette tobacco products, smokes one pack cigarettes per day. Screenin:55 [facility] ED Fall Risk Assessment (Adult) History of falling in the last 3 months, ph including since admission No falls in past 3 months (0 pts) Confusion or Disorientation No (0 pts) Intoxicated or Sedated No (0 pts) Impaired Gait No (0 pts) Mobility Assist Device Used No (0 pt) Altered Elimination No (0 pt) Score/Fall Risk Level 0 - 2 = Low Risk Oriented to surroundings, Maintained a safe environment, Hourly rounding (assess needs \T\ fall precautionary measures) done. Abuse screen: Denies threats or abuse. Denies injuries from another. Nutritional screening: No deficits noted. Tuberculosis screening: No symptoms or risk factors identified. Assessment: 13:55 General: Appears in no apparent distress. comfortable, Behavior is calm, cooperative, ph appropriate for age. Pain: Complains of pain in posterior aspect of left knee. Neuro: Level of Consciousness is awake, alert, obeys commands, Oriented to person, place, time, situation. Derm: Skin is pink, warm \T\ dry. Vital Signs: 13:02 BP 144 / 71; Pulse 89; Resp 16; Temp 98.5; Pulse Ox 97% on R/A; Weight 65.77 kg; Height iw 5 ft. 8 in. ; Pain 10/10; 14:34 BP 138 / 72; Pulse 81; Resp 18; Temp 97.9; Pulse Ox 98% on R/A; ph 13:02 Body Mass Index 22.05 (65.77 kg, 172.72 cm) iw 13:02 Pain Scale: Adult iw ED Course: 12:58 Patient arrived in ED. mr 12:59 Dasia Albert, RAINER is PHCP. kb 12:59 Raymond Martinez DO is Attending Physician. kb 13:04 Triage completed. iw 13:06 Arm band placed on. iw 13:24 Anuja Foy, RN is Primary Nurse. ph 13:33 Knee Left 3 View XRAY In Process Unspecified. EDMS 13:47 US Extremity Venous Unilateral Ltd In Process Unspecified. EDMS 13:56 Patient has correct armband on for positive identification. Bed in low position. Call ph light in reach. Side rails up X 1. Door closed. Noise minimized. 13:56 Provided Education on: Estimated time for test results and use of call light. ph 13:56 No provider procedures requiring assistance completed. Patient did not have IV access ph during this emergency room visit. Administered Medications: 13:54 Drug: Ketorolac IM 30 mg IM once Route: IM; Site: right deltoid; ph 14:35 Follow up: Response: No adverse reaction ph Medication: 13:56 VIS not applicable for this client. ph Outcome: 13:57 Discharge ordered by . kb 14:32 Patient left the ED. ph 14:32 Discharged to home ambulatory, ph 14:32 Condition: good 14:32 Discharge instructions given to patient, Instructed on discharge instructions, follow up and referral plans. medication usage, Demonstrated understanding of instructions, follow-up care, medications, Prescriptions given X 1, Signatures: Dispatcher [employer] EDDasia Epps, STEAMING CABINET TENDER-C STEAMING CABINET TENDER-Nadia Bustos, Reg Reg mr Vy Gaming RN RN iw Anuja Foy RN RN ph
[2024-01-01 15:01] VITALS: BP 144/71; TEMP 98.5; O2SAT 97
== END 2024-01-01 14:32 | disposition home or self-care (01) ==
LOC: ER 12:54
DX: M25.562 Pain in left knee (principal); F17.210 Nicotine dependence, cigarettes, uncomplicated
CPT/HCPCS: 93971